=== PATIENT | female | born 1950 | race Caucasian/White ===

== ENCOUNTER 2018-09-19 18:43 | Emergency (ER) | payer MEDICARE, OTHER ==
[2018-09-19 19:15] VITALS: TEMP 98.6
[2018-09-19] MEDS ORDERED: BISACODYL TAB 5 MG TAB PO ONE (21:43)
--- NOTE | 2018-09-20 00:16 | ED.PDOC ---
History of Present Illness - General Chief Complaint: GI Problem Stated Complaint: bloody diarrhea Time Seen by Provider: 09/19/18 18:54 Source: patient Exam Limitations: no limitations - History of Present Illness Initial Comments: the patient is a 68-year-old female presenting to the emergency room secondary to 2 episodes of bloody diarrhea that occurred earlier in the day. The patient is not really having abdominal pain and no fevers. She is presenting because she recently had a very severe C. difficile colitis infection that only cleared about 2 or 3 months ago. She had very severe complications with it including development of nephrotic syndrome, possibly from the oral vancomycin as well as severe delirium from the metronidazole. She still has significant nephrotic syndrome. She is no longer requiring albumin transfusions. She does take Coumadin which is therapeutic for her DVT prevention/treatment. The patient recently completed a course of Levaquin that was required to treat a right-sided lobar pneumonia. She has been taking the VSL 3, a probiotic to prevent a recurrence of C. difficile colitis. Timing/Duration: 4-6 hours Severity: mild Improving Factors: nothing Worsening Factors: nothing Associated Symptoms: denies symptoms Allergies/Adverse Reactions: Allergies Penicillins Allergy (Verified 09/19/18 19:09) Sulfa Antibiotics Allergy (Verified 09/19/18 19:09) Home Medications: Ambulatory Orders Carafate Tab 09/19/18 Citracal Plus 09/19/18 Co Q-10 09/19/18 Flonase 09/19/18 Itraconazole 09/19/18 Lasix 09/19/18 Levothyroxine Sodium 50 mcg PO 09/19/18 Nasacort Allergy 24Hr 09/19/18 Ocuvite 09/19/18 Pepcid 09/19/18 Potassium 09/19/18 Prednisone 09/19/18 Probiotic 09/19/18 Singulair 09/19/18 Tylenol 09/19/18 Warfarin Sodium 09/19/18 Xopenex Hfa 09/19/18 Review of Systems - Review of Systems Constitutional: States: no symptoms reported EENTM: States: no symptoms reported Respiratory: States: no symptoms reported Cardiology: States: no symptoms reported Gastrointestinal/Abdominal: States: diarrhea Genitourinary: States: no symptoms reported Musculoskeletal: States: no symptoms reported Skin: States: no symptoms reported Neurological: States: no symptoms reported Hematologic/Lymphatic: States: easy bleeding All other Systems: No Change from Baseline Past Medical History (General) - Patient Medical History Hx Asthma: Yes Hx Thyroid Disease: Yes Hx Gastroesophageal Reflux: Yes - Vaccination History Hx Influenza Vaccination: No - Female History Patient is a Female of Child Bearing Age (10 -59 yrs old): No Family Medical History - Family History Father Family History: Unknown Physical Exam - Physical Exam General Appearance: Alert, Comfortable, No apparent distress Eye Exam: bilateral normal Ears, Nose, Throat: hearing grossly normal, normal ENT inspection, normal pharynx Neck: non-tender, full range of motion, supple Respiratory: lungs clear, normal breath sounds, no respiratory distress, no accessory muscle use Cardiovascular/Chest: normal peripheral pulses, regular rate, rhythm, no edema Peripheral Pulses: radial,right: 2+, radial,left: 2+, dorsalis pedis,right: 2+, dorsalis pedis,left: 2+ Gastrointestinal/Abdominal: non tender, soft Rectal Exam: deferred Back Exam: normal inspection, no CVA tenderness, no vertebral tenderness Extremity: non-tender, normal inspection, no pedal edema, normal capillary refill 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 The patient has had a history of C. difficile colitis recently. Blood work and urinalysis are reassuring with the exception that there is still significant proteinuria. the patient presented as instructed for the first signs of any recurrence of the C. difficile colitis. Unfortunately she has not been able to give another stool sample during this visit. She is going to be sent home with a collection cup to bring him back immediately after she is able to collect a specimen to be tested. If the patient has positive then she needs to be placed on Dificid due to poor tolerance to and complications with the oral vancomycin and metronidazole. ER warnings were given. She is to continue her current dosage of Coumadin as she is currently therapeutic and she is at very high risk of DVT recurrence if she discontinues it. No evidence of any significant anemia. - Results/Orders Results/Orders: Laboratory Tests 09/19/18 09/19/18 09/19/18 19:10 19:10 19:10 WBC 11.7 H RBC 3.95 L Hgb 11.7 L Hct 36.9 MCV 93.4 MCH 29.6 MCHC 31.8 L RDW 14.8 H Plt Count 327 MPV 6.8 L Absolute Neuts (auto) 9.50 H Absolute Lymphs (auto) 1.50 Absolute Monos (auto) 0.50 Absolute Eos (auto) 0.10 Absolute Basos (auto) 0.10 Neutrophils % 81.5 H Lymphocytes % 13.1 L Monocytes % 4.1 Eosinophils % 0.6 L Basophils % 0.7 PT 22.0 H INR 2.22 H PTT (SP) 32.0 H Sodium 144 Potassium 3.9 Chloride 110 Carbon Dioxide 26 Anion Gap 11.9 L BUN 23 H Creatinine 0.91 BUN/Creatinine Ratio 25.3 H Random Glucose 133 H Serum Osmolality 292.4 Calcium 9.1 Total Bilirubin 0.7 AST 21 ALT 16 Alkaline Phosphatase 43 Serum Total Protein 6.6 Albumin 3.9 Globulin 2.7 Albumin/Globulin Ratio 1.4 Urine Color Urine Appearance Urine pH Ur Specific [place] Urine Protein Urine Glucose (UA) Urine Ketones Urine Blood Urine Nitrite Urine Bilirubin Urine Urobilinogen Ur Leukocyte Esterase Urine RBC Urine WBC Ur Epithelial Cells Urine Bacteria 09/19/18 19:40 WBC RBC Hgb Hct MCV MCH MCHC RDW Plt Count MPV Absolute Neuts (auto) Absolute Lymphs (auto) Absolute Monos (auto) Absolute Eos (auto) Absolute Basos (auto) Neutrophils % Lymphocytes % Monocytes % Eosinophils % Basophils % PT INR PTT (SP) Sodium Potassium Chloride Carbon Dioxide Anion Gap BUN Creatinine BUN/Creatinine Ratio Random Glucose Serum Osmolality Calcium Total Bilirubin AST ALT Alkaline Phosphatase Serum Total Protein Albumin Globulin Albumin/Globulin Ratio Urine Color Yellow Urine Appearance Clear Urine pH 6.0 Ur Specific [place] 1.025 Urine Protein >=300 H Urine Glucose (UA) Negative Urine Ketones Negative Urine Blood Small H Urine Nitrite Negative Urine Bilirubin Negative Urine Urobilinogen 0.2 Ur Leukocyte Esterase Negative Urine RBC 5-10 H Urine WBC 1-3 Ur Epithelial Cells 1-3 Urine Bacteria Rare Departure - Departure Clinical Impression: Bloody diarrhea Disposition: Discharge to Home or Self Care Condition: Fair Departure Forms: ED Discharge - Pt. Copy, Patient Portal Self Enrollment Instructions: DI for Gastrointestinal Bleeding Diet: regular diet Activity: increase activity as tolerated Referrals: Yadiel Gregory MD [Primary Care Provider] - 1-2 Days Home Medications: Ambulatory Orders Carafate Tab 09/19/18 Citracal Plus 09/19/18 Co Q-10 09/19/18 Flonase 09/19/18 Itraconazole 09/19/18 Lasix 09/19/18 Levothyroxine Sodium 50 mcg PO 09/19/18 Nasacort Allergy 24Hr 09/19/18 Ocuvite 09/19/18 Pepcid 09/19/18 Potassium 09/19/18 Prednisone 09/19/18 Probiotic 09/19/18 Singulair 09/19/18 Tylenol 09/19/18 Warfarin Sodium 09/19/18 Xopenex Hfa 09/19/18 Additional Instructions: the patient is a 68-year-old female presenting to the emergency room secondary to bloody diarrhea. The patient has had a history of C. difficile colitis recently. Blood work and urinalysis are reassuring with the exception that there is still significant proteinuria. the patient presented as instructed for the first signs of any recurrence of the C. difficile colitis. Unfortunately she has not been able to give another stool sample during this visit. She is going to be sent home with a collection cup to bring him back immediately after she is able to collect a specimen to be tested. If the patient has positive then she needs to be placed on Dificid due to poor tolerance to and complications with the oral vancomycin and metronidazole. ER warnings were given. She is to continue her current dosage of Coumadin as she is currently therapeutic and she is at very high risk of DVT recurrence if she discontinues it. No evidence of any significant anemia. continue the probiotic.
[2018-09-20 00:33] VITALS: BP 141/79; O2SAT 98
== END 2018-09-20 00:30 | disposition home or self-care (01) ==
LOC: ER 18:43
DX: K92.1 Melena (principal); R19.7 Diarrhea, unspecified; J45.909 Unspecified asthma, uncomplicated; E07.9 Disorder of thyroid, unspecified; K21.9 Gastro-esophageal reflux disease without esophagitis; Z79.899 Other long term (current) drug therapy; Z88.0 Allergy status to penicillin; Z88.2 Allergy status to sulfonamides

== ENCOUNTER 2018-10-26 06:08 | Day surgery (SDC) | payer MEDICARE, OTHER ==
[~2018-10-26 06:08] MED LIST: LACTATED RINGERS 1,000 ML ONE
[2018-10-26] MEDS ORDERED: fentaNYL CITRATE INJ 50 MCG/ML AMP ONE (07:36)
--- NOTE | 2018-10-26 09:49 | OP ---
DATE OF PROCEDURE: 10/26/18 PREPROCEDURE DIAGNOSIS: 1. Dysphagia. POSTPROCEDURE DIAGNOSIS: 1. Erythematous gastropathy. 2. Large hiatal hernia. 3. 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 PROCEDURE: 1. Esophagogastroduodenoscopy. SURGEON: Michael Espitia MD REFERRING PHYSICIAN: Rodrigo Gregory MD COMPLICATIONS: No immediate complications. SEDATION: The patient was sedated via IV propofol by the Anesthesia Department. CONSENT: Prior to the procedure, risks, benefits and alternatives to the therapy were discussed with the patient. The risks included bleeding, infection , perforation and . The patient agreed to the procedure and signed a consent. PREPROCEDURE ANESTHESIA ASSESSMENT: An examination revealed no contraindication to sedation. Airway examination demonstrated a Mallampati class type 2, ASA grade assessment type 2. Throughout the procedure, all vitals were monitored closely. PROCEDURE: The patient was placed in the left lateral decubitus position. Bite block was placed in the mouth between the teeth. The Olympus endoscope was introduced through the oropharynx, esophagus, stomach and the second portion of the duodenum. The scope was retracted and the mucosa visualized. The entirety of the exam was performed under direct visualization. Retroflexion was performed in the stomach. The patient tolerated the procedure well. FINDINGS: 1. Two nonobstructing webs were found in the midesophagus at approximately 28 cm from the incisors. Preparations for esophageal dilation were made. A Savary wire was advanced through the scope and this was retracted. A Savary 18 mm tube was advanced over the guidewire and dilation was performed successfully. 2. A medium to large sized hiatal hernia was found in the distal esophagus. The diaphragmatic pinch was found at 38 cm from the incisors and the gastric folds were found at 34 cm. 3. Diffuse, striped moderate erythema was found in the gastric antrum. Biopsies with cold forceps were obtained. Otherwise, the stomach was normal. 4. The entire examination of the duodenum was normal. RECOMMENDATION: 1. Return the patient home. 2. Start omeprazole 20 mg p.o. b.i.d., 30 minutes before breakfast and dinner. 3. GERD lifestyle recommendations, reinforcing small portion meals and avoiding late night eating prior to laying supine, raising the head of the bed. 4. Repeat upper endoscopy p.r.n. 5. The findings and recommendations were discussed with the patient and family members. 6. Return to my office in the subsequent two weeks. #[id number] MTDD
[2018-10-26] MEDS ORDERED: PROPOFOL 200 MG/20 ML VIAL IV ONE (10:00)
[2018-10-26] MEDS ORDERED: LIDOCAINE 1% 10 ML VIAL INJ ONE (10:00)
[2018-10-26 15:11] VITALS: BP 132/80; TEMP 97.8; O2SAT 98
== END 2018-10-26 09:34 | disposition home or self-care (01) ==
LOC: AMB 06:08
PROVIDERS: ATTEND Internal Medicine Gastroenterology
DX: R13.10 Dysphagia, unspecified (principal); K29.50 Unspecified chronic gastritis without bleeding; K44.9 Diaphragmatic hernia without obstruction or gangrene; I10 Essential (primary) hypertension; E03.9 Hypothyroidism, unspecified; J45.909 Unspecified asthma, uncomplicated; Z88.0 Allergy status to penicillin; Z88.2 Allergy status to sulfonamides; Z88.7 Allergy status to serum and vaccine; Z88.8 Allergy status to other drugs, medicaments and biological substances; Z91.010 Allergy to peanuts; Z79.01 Long term (current) use of anticoagulants; Z79.899 Other long term (current) drug therapy
CPT/HCPCS: 00731; 43239; 43248; J3010; J3490; J7120